=== PATIENT | female | born 1940 | race Two or more races ===

== ENCOUNTER 2024-06-03 12:31 | Emergency (ER) | payer MEDICARE, MEDICAID, SELFPAY ==
[2024-06-03 12:34] VITALS: BMI 26.6
[2024-06-03 12:50] VITALS: BP 149/89; PULSE 72; RESP 18; TEMP 36.8; O2SAT 100
--- NOTE | 2024-06-03 12:53 | XR_ITS ---
Examination: AP lateral chest 2 views TECHNIQUE: Upright AP lateral chest 2 views Exam date and time: June 03, 2024 1347 hours Comparison December 29, 2023 INDICATIONS: Sternal chest pain beginning this morning FINDINGS: Mild prominence left ventricle Mild ectasia thoracic aorta. No pneumonia or pulmonary edema Moderate thoracic spondylosis IMPRESSION: No pneumonia or pulmonary edema
--- NOTE | 2024-06-03 12:53 | EKG_ITS ---
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
--- NOTE | 2024-06-03 12:53 | PD.EDRME ---
Rapid Medical Screening Exam E Arrival date/time: 06/03/24 12:31 84-year-old female with a history of hypertension, hyperlipidemia presents to the emergency room with a chief complaint of 8 out of 10 sternal chest pain that began this morning but has now subsided. Patient also states she is having numbness to her lower extremities and left arm. Patient has a history of heart attacks. I have greeted and performed a focused initial assessment of this patient. A comprehensive ED assessment and evaluation of the patient, analysis of all test results, and completion of the medical decision making process will be conducted by additional ED providers. Chief Complaint: Weakness Time Seen by Provider: 06/03/24 12:36 Vital signs: Vital Signs Temperature 98.2 F 06/03/24 12:50 Pulse Rate 72 06/03/24 12:50 Respiratory Rate 18 06/03/24 12:50 Blood Pressure 149/89 H 06/03/24 12:50 Pulse Oximetry (%) 100 06/03/24 12:50 Oxygen Delivery Method Room Air 06/03/24 12:50 Vital signs reviewed by provider: Yes
[2024-06-03 13:21] LABS: Basophils # (Auto) 0.1 Thou/mm3 (0.0-0.2); Basophils % (Auto) 1 % (0-2.5); Eosinophils # (Auto) 0.3 Thou/mm3 (0.0-0.5); Eosinophils % (Auto) 4 % (0-10); Hematocrit 33.9 % (36.0-46.0); Hemoglobin 11.4 g/dL (12.0-16.0); Immature Granulocytes % (Auto) 0 % (0-0); Immature Granulocytes Auto 0.02 Thou/mm3 (0.00-0.00); Lymphocytes # (Auto) 2.4 Thou/mm3 (1.0-4.8); Lymphocytes % (Auto) 33 % (10-50); Mean Corpuscular HGB Conc 33.6 g/dl (31.0-37.0); Mean Corpuscular Hemoglobin 29.8 pg (25.0-35.0); Mean Corpuscular Volume 89 fL (80-100); Monocytes # (Auto) 0.6 Thou/mm3 (0.0-0.8); Monocytes % (Auto) 8 % (0-12); Neutrophils # (Auto) 4.1 Thou/mm3 (1.8-7.7); Neutrophils % (Auto) 55 % (37-80); Nucleated Red Blood Cell % 0 /100 WBC (0); Platelet Count 225 Thou/mm3 (140-440); RDW Standard Deviation 44.2 fL (36.4-46.3); Red Blood Count 3.83 Miln/mm3 (4.00-5.20); White Blood Count 7.5 Thou/mm3 (3.6-11.0)
[2024-06-03 13:36] LABS: Partial Thromboplastin Time 23.2 Seconds (22.0-36.0); Prothrombin Time 10.9 Seconds (9.0-12.2)
[2024-06-03 13:41] LABS: B-Type Natriuretic Peptide 112 pg/mL (0-100)
[2024-06-03 13:43] LABS: Alanine Aminotransferase 13 U/L (10-49); Albumin/Globulin Ratio 1.5 (1.2-2.2); Alkaline Phosphatase 60 U/L (46-116); Anion Gap 7 (7-16); Aspartate Amino Transferase 21 U/L (0-34); BUN/Creatinine Ratio 23 Ratio (12-20); Bilirubin,Total 0.6 mg/dL (0.3-1.2); Blood Urea Nitrogen 18 mg/dL (9-23); Calcium 8.5 mg/dL (8.3-10.6); Calcium (Corrected) 8.5 mg/dL (8.5-10.1); Carbon Dioxide 27.9 mMol/L (20.0-31.0); Chloride 103 mMol/L (98-107); Creatinine (Component) 0.8 mg/dL (0.6-1.3); Estimated Creatinine Clearance 50.4 mL/min (>60); Globulin 2.7 gm/dL (2.3-3.5); Glucose 136 mg/dL (74-106); Magnesium 2.1 mg/dL (1.6-2.6); Osmolality,Calculated 279 (275-295); Potassium 3.8 mMol/L (3.4-5.1); Sodium 138 mMol/L (136-145); Total Protein 6.7 gm/dL (5.7-8.2); Troponin I < 0.002 ng/mL (0.0-0.045); eGFR > 60 See Note
[2024-06-03 15:23] LABS: Collection Type, Urine Clean Catch
[2024-06-03 15:32] LABS: Bilirubin,Urine Negative (Negative); Blood,Urine Negative (Negative); Clarity,Urine Clear (Clear/Hazy); Color,Urine Lt-Yellow (Lt Yel-Yel); Glucose, Urine Negative (Negative); Ketones,Urine Negative (Negative); Leukocyte Esterase,Urine Negative (Negative); Nitrite,Urine Negative (Negative); Protein,Urine Negative (Neg - Trace); RBC,Urine 1 /hpf (0-3); Specific Gravity,Urine 1.012 (1.001-1.035); Squamous Epithelial Cell,Urine 1 /hpf (0-5); Urobilinogen,Urine Negative mg/dL (0.0-1.0); WBC,Urine 1 /hpf (0-5)
--- NOTE | 2024-06-03 16:49 | PD.EDRME ---
Rapid Medical Screening Exam RME Arrival date/time: 06/03/24 12:31 06/03/24 12:31 84-year-old female with a history of hypertension, hyperlipidemia presents to the emergency room with a chief complaint of 8 out of 10 sternal chest pain that began this morning but has now subsided. Patient also states she is having numbness to her lower extremities and left arm. Patient has a history of heart attacks. I have greeted and performed a focused initial assessment of this patient. A comprehensive ED assessment and evaluation of the patient, analysis of all test results, and completion of the medical decision making process will be conducted by additional ED providers. Chief Complaint: Weakness Time Seen by Provider: 06/03/24 12:36 Vital signs: Vital Signs Temperature 98.2 F 06/03/24 12:50 Pulse Rate 72 06/03/24 12:50 Respiratory Rate 18 06/03/24 12:50 Blood Pressure 149/89 H 06/03/24 12:50 Pulse Oximetry (%) 100 06/03/24 12:50 Oxygen Delivery Method Room Air 06/03/24 12:50 RME Narrative: 06/03/24 12:31 84-year-old female with a history of hypertension, hyperlipidemia presents to the emergency room with a chief complaint of 8 out of 10 sternal chest pain that began this morning but has now subsided. Patient also states she is having numbness to her lower extremities and left arm. Patient has a history of heart attacks. I have greeted and performed a focused initial assessment of this patient. A comprehensive ED assessment and evaluation of the patient, analysis of all test results, and completion of the medical decision making process will be conducted by additional ED providers.
--- NOTE | 2024-06-03 16:53 | PD.EDADULT ---
ED General RME/HPI General Chief complaint: Weakness Stated complaint: Feels body is numb Time Seen by Provider: 06/03/24 12:36 Arrival date/time: 06/03/24 12:31 CC: The chest pain at the start of the left anterior chest radiated across the right chest and up into the back lasted approximately 20 minutes no prior history of similar events with spontaneously resolved after 20 minutes. Patient denies shortness of breath difficulty breathing headache nausea vomiting or diarrhea no other complaints at this time. RME / HPI RME / HPI narrative: 06/03/24 12:31 84-year-old female with a history of hypertension, hyperlipidemia presents to the emergency room with a chief complaint of 8 out of 10 sternal chest pain that began this morning but has now subsided. Patient also states she is having numbness to her lower extremities and left arm. Patient has a history of heart attacks. I have greeted and performed a focused initial assessment of this patient. A comprehensive ED assessment and evaluation of the patient, analysis of all test results, and completion of the medical decision making process will be conducted by additional ED providers. Related Data Home Medications ?Medication ?Instructions ?Recorded ?Confirmed ezetimibe 10 mg tablet 10 mg PO QDAY 04/23/17 04/23/17 losartan 100 1 tab PO QDAY 04/23/17 04/23/17 mg-hydrochlorothiazide 12.5 mg tablet omeprazole 20 mg capsule,delayed 20 mg PO QDAY 04/23/17 04/23/17 release Previous Rx's ?Medication ?Instructions ?Recorded omeprazole 20 mg tablet,delayed 20 mg PO QDAY #30 tabs 05/25/22 release omeprazole 20 mg capsule,delayed 20 mg PO QDAY #14 caps 12/29/23 release Allergies Allergy/AdvReac Type Severity Reaction Status Date / Time codeine Allergy Swelling Verified 12/29/23 04:58 of Lip/Tongue/Throat Review of Systems Review of Systems Narrative Review of Systems: GEN: No fever, no chills, no weight loss EYES: No discharge, no visual changes, no pain HEENT: No ear pain, no congestion, no sore throat PULM: No shortness of breath, no cough, no congestion CV: + chest pain, no dyspnea on exertion, no palpitations GI: No nausea, no vomiting, no diarrhea, no pain, no constipation : No frequency, no urgency, no dysuria MUSC/SKEL: No joint pain, no back pain SKIN: No rash PSYCH: No hallucinations, no depression HEME/LYMPH: No easy bleeding or bruising tendencies NEURO: No weakness, no headache Past Medical History Past Medical History NEUROLOGIC: Positive Neurological Disorders; Negative Migraine CARDIAC: Positive Cardiac Disorders, Hypercholesterolemia and Hypertension; Negative Congestive Heart Failure RESPIRATORY: Negative Chronic Obstructive Pulmonary Disease (COPD) or Asthma GASTROINTESTINAL: Positive Gastrointestinal Disorders, Hiatal Hernia and Gastroesophageal Reflux Disease GENITOURINARY: Negative Genitourinary Disorders or Renal Disease REPRODUCTIVE: Negative Pelvic Inflammatory Disease MUSCULOSKELETAL: Positive Musculoskeletal Disorders ENT: Positive Cataracts (bilateral removed) ENDOCRINE: Negative Endocrine Disorders, Diabetes Mellitus Type 1 or Diabetes Mellitus Type 2 HEMATOLOGIC: Negative Blood Disorders or Sickle Cell Disease PSYCHO/SOCIAL: Positive Depression OTHER HISTORY: Positive Hospitalization (flu) and Measles; Negative Blood Transfusions or Anesthesia Reactions Family History FAMILY HISTORY: Positive Family Cancer (brother) Surgical History SURGICAL: Positive Hysterectomy Social History SMOKING STATUS: Never smoker ED Exam Narrative Physical exam: [General: Deconditioned but not in any no acute distress Head normocephalic HEENT: Within acceptable limits Neck is supple nontender Chest equal chest rise nontender to palpation Respiratory: Clear to auscultation no wheezes crackles or rubs CV: Rate rhythm is regular no murmurs rubs or clicks Abdomen is distended secondary to body habitus soft nontender no masses positive bowel sounds all 4 quadrants Back: Chief Atik, no CVA tenderness no spinous process tenderness from cervical spine thoracic and lumbar spine Skin: Intact no petechiae rash induration ulceration or crepitus Extremities: Moving all extremity against resistance cap refill less than 2 seconds neurosensory intact Neuro: Awake alert oriented x3 Glascow coma 15 no focal deficits] Course Quality Measures none Orders Category Date Time Status Bedside COVID-19 Antigen Test NOW Care 06/03/24 12:53 Active Bedside Influenza A&B Antigen Test NOW Care 06/03/24 12:53 Completed EKG (ED ONLY) *Do not use* NOW Care 06/03/24 12:53 Completed EKG (ED Only) Stat Exams 06/03/24 12:53 Draft XR chest 2V Stat Exams 06/03/24 12:53 Completed B-Type Natriuretic Peptide Stat Lab 06/03/24 13:00 Completed CBC Stat Lab 06/03/24 13:00 Completed Comprehensive Metabolic Panel Stat Lab 06/03/24 13:00 Completed Magnesium Stat Lab 06/03/24 13:00 Completed Partial Thromboplastin Time Stat Lab 06/03/24 13:00 Completed Prothrombin Time with INR Stat Lab 06/03/24 13:00 Completed Troponin I Stat Lab 06/03/24 13:00 Completed Urinalysis Stat Lab 06/03/24 15:15 Completed Vital Signs Vital signs: Vital Signs Temperature 98.2 F 06/03/24 12:50 Pulse Rate 72 06/03/24 12:50 Respiratory Rate 18 06/03/24 12:50 Blood Pressure 149/89 H 06/03/24 12:50 Pulse Oximetry (%) 100 06/03/24 12:50 Oxygen Delivery Method Room Air 06/03/24 12:50 [facility] Patient data External records reviewed:: [facility] previous records Clinical information provided by:: none Social determinants that could affect healthcare access:: none Patient has the following chronic illnesses:: Coronary artery disease How is presenting disease/condition affected by chronic disease/condition?: uneffected by Evaluation data The following diagnostics were reviewed and interpreted by me:: lab results, radiology exam(s) and EKG tracing(s) Lab and/or radiology exams considered but not ordered:: EKG performed at 1306 shows ventricular rate of 73 TX interval 156 QRS of 8 1 QTc of 405 is normal sinus rhythm. CBC shows no acute leukocytosis and H&H of 11.4 and 33.9 platelets within acceptable limits Coags within acceptable limits CMP shows no significant electrolyte imbalances glucose of 136 no transaminitis or T. bili elevation Troponin is negative BNP is 112 urine Urine is negative for urinary tract infection chest x-ray as interpreted by me read by radiology as negative for any acute finding requires emergent or immediate intervention. Interpretation Summary: Chest pain of indeterminate cause. Patient has remained chest pain-free for the last 4 hours. Will discharge home to follow-up with her primary care provider Medications Medications considered but not ordered:: None Medication administrations:: None Consultations Consultation(s) initiated? (list below): No Diagnosis Differential Diagnosis ED Complaint MDM: ACS ID pneumonia Most likely diagnosis given after review of the tests above:: Chest pain Admission Indicated Admission indicated?: not indicated Explain why admission is indicated or not indicated:: Stable for outpatient follow Admission Request Was there a request for admission?: No Disposition Plan Disposition Plan: Discharge Discharge Attestation Discharge Attestation: The patient and all family members were given an opportunity to ask questions and understood the discharge instructions. Discharge instructions specifically effects, indications for sooner follow up or return to the emergency department, and the expected course of current diagnosis. Patient condition: Stable Medical Decision Making Differential Diagnosis Differential Diagnosis: ACS ID pneumonia Lab Data 06/03/24 13:00 06/03/24 13:00 Labs: Lab Results 06/03/24 06/03/24 Range/Units 13:00 15:15 WBC 7.5 (3.6-11.0) Thou/mm3 RBC 3.83 L (4.00-5.20) Miln/mm3 Hgb 11.4 L (12.0-16.0) g/dL Hct 33.9 L (36.0-46.0) % MCV 89 (80-100) fL MCH 29.8 (25.0-35.0) pg MCHC 33.6 (31.0-37.0) g/dl RDW Std Deviation 44.2 (36.4-46.3) fL Plt Count 225 (140-440) Thou/mm3 Neut % (Auto) 55 (37-80) % Lymph % (Auto) 33 (10-50) % Dunn % (Auto) 8 (0-12) % Eos % (Auto) 4 (0-10) % Baso % (Auto) 1 (0-2.5) % Neut # (Auto) 4.1 (1.8-7.7) Thou/mm3 Lymph # (Auto) 2.4 (1.0-4.8) Thou/mm3 Dunn # (Auto) 0.6 (0.0-0.8) Thou/mm3 Eos # (Auto) 0.3 (0.0-0.5) Thou/mm3 Baso # (Auto) 0.1 (0.0-0.2) Thou/mm3 Immature Gran # (Auto) 0.02 H (0.00-0.00) Thou/mm3 Absolute Nucleated RBC 0.00 (0.00-0.00) Thou/mm3 Immature Gran % 0 (0-0) % Nucleated RBC % 0 (0) /100 WBC PT 10.9 (9.0-12.2) Seconds INR 1.0 (0.9-1.3) APTT 23.2 (22.0-36.0) Seconds Sodium 138 (136-145) mMol/L Potassium 3.8 (3.4-5.1) mMol/L Chloride 103 (98-107) mMol/L Carbon Dioxide 27.9 (20.0-31.0) mMol/L Anion Gap 7 (7-16) BUN 18 (9-23) mg/dL Creatinine 0.8 (0.6-1.3) mg/dL Estim Creat Clear Calc 50.4 L (>60) mL/min eGFR > 60 (60 - ) See Note BUN/Creatinine Ratio 23 H (12-20) Ratio Glucose 136 H (74-106) mg/dL Calculated Osmolality 279 (275-295) Calcium 8.5 (8.3-10.6) mg/dL Corrected Calcium 8.5 (8.5-10.1) mg/dL Magnesium 2.1 (1.6-2.6) mg/dL Total Bilirubin 0.6 (0.3-1.2) mg/dL AST 21 (0-34) U/L ALT 13 (10-49) U/L Alkaline Phosphatase 60 (46-116) U/L Troponin I < 0.002 (0.0-0.045) ng/mL B-Natriuretic Peptide 112 H (0-100) pg/mL Total Protein 6.7 (5.7-8.2) gm/dL Albumin 4.0 (3.4-4.8) gm/dL Globulin 2.7 (2.3-3.5) gm/dL Albumin/Globulin Ratio 1.5 (1.2-2.2) Ur Collection Type Clean Catch Urine Color Lt-Yellow (Lt Yel-Yel) Urine Clarity Clear (Clear/Hazy) Urine pH 7.0 (5.0-7.0) Ur Specific Watkins 1.012 (1.001-1.035) Urine Protein Negative (Neg - Trace) Urine Glucose (UA) Negative (Negative) Urine Ketones Negative (Negative) Urine Blood Negative (Negative) Urine Nitrite Negative (Negative) Urine Bilirubin Negative (Negative) Urine Urobilinogen (Auto) Negative (0.0-1.0) mg/dL Ur Leukocyte Esterase Negative (Negative) Urine RBC 1 (0-3) /hpf Urine WBC 1 (0-5) /hpf Ur Squamous Epith Cells 1 (0-5) /hpf Urine Bacteria None (None) Discharge Plan Plan Patient Disposition: HOME (Self Care) Patient condition on transfer: Stable Prescriptions/Referrals Prescriptions/Med Rec: No Action omeprazole 20 mg Capsule,Delayed Release(Dr/Ec) 20 mg PO QDAY ezetimibe 10 mg Tablet 10 mg PO QDAY losartan-hydrochlorothiazide 100-12.5 mg Tablet 1 tab PO QDAY omeprazole 20 mg tablet,delayed release (DR/EC) 20 mg PO QDAY Qty: 30 0RF omeprazole 20 mg capsule,delayed release(DR/EC) 20 mg PO QDAY Qty: 14 0RF Referrals: Jono Marie [Primary Care Provider] - In 1 week Problem List Clinical Impression: Chest pain Patient/Caregiver Discharge Instructions Education Materials: ED Chest Pain, Uncertain Cause Additional Instructions: Return to the emergency if the chest pain reoccurs, if it severe call 911. Print Language: Vietnamese Stand Alone Forms: Anjelica Award Info., Patient Portal Info Letter PA/FORESTRY SUPPORT SPECIALIST Supervising Physician PA/FORESTRY SUPPORT SPECIALIST Supervising Physician: Braov Mcdowell ENP
== END 2024-06-03 17:04 | disposition home or self-care (01) ==
PROVIDERS: Nurse Practitioner Family; Emergency Provider Emergency Medicine; PCP Physician Assistant
DX: R07.9 Chest pain, unspecified (principal); I10 Essential (primary) hypertension; E78.5 Hyperlipidemia, unspecified; I25.2 Old myocardial infarction
CPT/HCPCS: 36415; 71046; 80053; 81001; 83735; 83880; 84484; 85025; 85610; 85730; 87400; 87811; 93005; 99283

== ENCOUNTER 2025-01-21 17:51 | Inpatient (IN) | payer MEDICARE, MEDICAID, SELFPAY ==
[2025-01-21 17:52] VITALS: PULSE 94; RESP 18; O2SAT 98; BMI 24.2
[2025-01-21 17:55] VITALS: BP 140/87; PULSE 84; RESP 19; TEMP 37.1; O2SAT 99
--- NOTE | 2025-01-21 18:48 | XR_ITS ---
Examination: CT abdomen with intravenous contrast CT pelvis with intravenous contrast 2-D coronal reconstructions 2-D sagittal reconstructions Date and time of exam: January 21, 2025, 2101 hours COMPARISON: 11/12/2010 INDICATIONS: Onset generalized abdominal pain and weakness today. CTDI: vol (mGy) 15.92 DLP: (mGycm) 661 Technique: Multiple axial sections of the abdomen and pelvis have been obtained. 64 slice high-resolution scanner used. 3 mm axial sections have been obtained, post intravenous injection 60 cc Isovue 370 2-D sagittal, coronal reconstructions obtained. Low dose protocols were performed. One or more of the following dose reduction techniques were used; automated exposure control, adjustment of the mA and/or KV according to patient size, use of iterative reconstruction technique. Findings: Large retrocardiac gastric hernia, no visualized liver or splenic lesions Absent gallbladder No pancreatic or adrenal mass No renal or ureteral calculi Aorta normal size No bowel obstruction Normal appendix No diverticulitis No pelvic mass Bladder intact Severe osteopenia, moderate narrowing hip joint IMPRESSION: No renal or ureteral calculi, no hydronephrosis Normal appendix No bowel obstruction diverticulitis or free air
--- NOTE | 2025-01-21 18:48 | EKG_ITS ---
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
--- NOTE | 2025-01-21 18:52 | XR_ITS ---
EXAMINATION: AP chest single view TECHNIQUE: AP portable semiupright chest single view Date and time: January 21, 2025, 1907 hours INDICATIONS: Shortness of breath vomiting today. FINDINGS: Normal heart size Ectatic thoracic aorta The right mediastinum appears prominent on this study Prominent osteopenia IMPRESSION: Recommend PA lateral chest follow-up to exclude prominent right mediastinum
--- NOTE | 2025-01-21 18:53 | PD.EDWEAK ---
ED Weakness RME/HPI General Chief complaint: Weakness Stated complaint: WEAKNESS Time Seen by Provider: 01/21/25 18:16 Arrival date/time: 01/21/25 17:51 84-year-old female patient with significant history of hypercholesterolemia, hypertension, not taking any blood thinner, came in for evaluation regarding generalized body weakness. Patient complaining of generalized body weakness since earlier today, associated with coffee-ground vomitus this afternoon. On my initial evaluation patient is actively having coffee-ground vomitus. Patient denies any abdominal pain denies any diarrhea denies any cough denies any fever denies any other complaints. Denies any abdominal surgery. Related Data Home Medications ?Medication ?Instructions ?Recorded ?Confirmed ezetimibe 10 mg tablet 10 mg PO QDAY 04/23/17 04/23/17 losartan 100 1 tab PO QDAY 04/23/17 04/23/17 mg-hydrochlorothiazide 12.5 mg tablet omeprazole 20 mg capsule,delayed 20 mg PO QDAY 04/23/17 04/23/17 release Previous Rx's ?Medication ?Instructions ?Recorded omeprazole 20 mg tablet,delayed 20 mg PO QDAY #30 tabs 05/25/22 release omeprazole 20 mg capsule,delayed 20 mg PO QDAY #14 caps 12/29/23 release Allergies Allergy/AdvReac Type Severity Reaction Status Date / Time codeine Allergy Swelling Verified 12/29/23 04:58 of Lip/Tongue/Throat Review of Systems Review of Systems Narrative Review of Systems: Review of system reviewed and within normal limits except mentioned in HPI ED Exam Narrative Physical exam: VITAL SIGNS: Reviewed. GENERAL APPEARANCE: Alert and interactive, follows commands, no acute distress, HEAD AND FACE: Non-traumatic. ENT: PERRL, pink conjunctivitis, eyelid no trauma, Mucous membrane moist. NECK: Supple, nontender, no nuchal rigidity. CHEST: No tenderness, no crepitus, no paradoxical movement, no retractions. LUNGS: Clear, well ventilated, symmetric, no rales, no wheezing, no ronchi, no stridor, good breath sounds bilaterally. HEART: Regular rate, regular rhythm, no murmur, no gallops. ABDOMEN: Soft, positive bowel sounds, nondistended, no guarding, nontender, no rebound, no masses, RECTAL: Deferred. GENITAL: Deferred. NEUROLOGICAL: Gross motor function intact sensory function intact, Appropriate for age. MUSCULOSKELETAL: low back nontender, full range of motion. EXTREMITIES: Nontender, full range of motion. SKIN: Color pink, dry, no rash, no lacerations, no abrasions, no contusions. LYMPHATICS: Deferred. Course Quality Measures none Orders Category Date Time Status COVID-19 Screening Questionnaire NOW Care 01/21/25 22:[address] Screening NOW Care 01/21/25 18:48 Active Decision to Admit X1 Care 01/21/25 22:11 Active EKG (ED ONLY) *Do not use* NOW Care 01/21/25 18:48 Completed NPO after Midnight ONCE Care 01/21/25 22:11 Active Occult blood,Gastric (Nursing) NEEDED Care 01/21/25 18:49 Active Consult to Gastroenterology Stat Cons 01/21/25 22:04 Ordered Diet NPO after Midnight Diet 01/22/25 00:[address] abdomen pelvis w con Stat Exams 01/21/25 18:48 Completed EKG (ED Only) Stat Exams 01/21/25 18:48 Draft XR chest 1V Stat Exams 01/21/25 18:52 Completed CBC Stat Lab 01/21/25 19:00 Completed Comprehensive Metabolic Panel Stat Lab 01/21/25 19:00 Completed Lipase Stat Lab 01/21/25 19:00 Completed Partial Thromboplastin Time Stat Lab 01/21/25 19:00 Completed Prothrombin Time with INR Stat Lab 01/21/25 19:00 Completed Troponin I Stat Lab 01/21/25 19:00 Completed Urinalysis Stat Lab 01/21/25 20:53 Completed Ondansetron Inj [Zofran Inj] Med 01/21/25 18:48 Discontinued 4 mg IVP X1 ONE POTASSIUM CHL 10 mEq IVPB [Kcl Ivpb] Med 01/21/25 20:28 Discontinued 10 meq in 100 ml IV X1 Pantoprazole Inj [Protonix Inj] Med 01/21/25 18:48 Discontinued 80 mg IVP X1 ONE Potassium Chloride [K-Dur] Med 01/21/25 21:52 Discontinued 20 meq PO X1 ONE Vital Signs Vital signs: Vital Signs Temperature 98.7 F 01/21/25 17:55 Pulse Rate 84 01/21/25 17:55 Respiratory Rate 19 01/21/25 17:55 Blood Pressure 140/87 H 01/21/25 17:55 Pulse Oximetry (%) 99 11/22/25 17:55 Oxygen Delivery Method Room Air 01/21/25 17:55 Weakness MDM Narrative MDM Narrative:: 84-year-old female patient with significant history of hypercholesterolemia, hypertension, not taking any blood thinner, came in for evaluation regarding generalized body weakness. Patient complaining of generalized body weakness since earlier today, associated with coffee-ground vomitus this afternoon. On my initial evaluation patient is actively having coffee-ground vomitus. Patient denies any abdominal pain denies any diarrhea denies any cough denies any fever denies any other complaints. Denies any abdominal surgery. Patient tested positive for gastric occult blood strong positive. From the vomitus Was given IV Zofran and IV Protonix Patient's laboratory workup all came back unremarkable including normal hemoglobin and hematocrit. Except for potassium of 3.[address] scan of the abdomen pelvis came back unremarkable. Chest x-ray also came back unremarkable. EKG showed normal sinus rhythm, ventricular rate of 87 bpm, no ST segment elevation or depression noted. Urinalysis positive for leukocyte esterase and WBC however there is also a lot of squamous cell telling me that this sample is contaminated. Plan of care discussed with the patient and family who agrees to be admitted for further management. I consulted Dr. Tan, GI specialist on-call, who told me to put the patient on n.p.o. for scope in the morning. Patient and family agrees to be scope in the morning. Spoke with hospitalist, who admitted the patient. Patient data External records reviewed:: None Clinical information provided by:: patient Social determinants that could affect healthcare access:: none Patient has the following chronic illnesses:: Hypertension How is presenting disease/condition affected by chronic disease/condition?: uneffected by Evaluation data The following diagnostics were reviewed and interpreted by me:: lab results, radiology exam(s) and EKG tracing(s) Lab and/or radiology exams considered but not ordered:: None Interpretation Summary: See above Medications / Prescriptions Medications or Prescriptions considered but not ordered:: None Medication administrations:: Medication Administration History Discontinued Medications Potassium Chloride (Kcl Ivpb) 10 meq in 100 mls @ 100 mls/hr IV X1 ONE Stop: 01/21/25 21:27 Last Infusion: 01/21/25 21:49 Dose: 0 mls/hr Documented By: Infusion: 01/21/25 21:39 Dose: 50 mls/hr Documented By: Admin: 01/21/25 21:17 Dose: 100 mls/hr Documented By: BD Ondansetron HCl (Ondansetron Inj 2 Mg/Ml Inj 2 Ml) 4 mg IVP X1 ONE; Protocol Stop: 01/21/25 18:49 Last Admin: 01/21/25 19:00 Dose: 4 mg Documented By: TM Pantoprazole Sodium (Pantoprazole Inj 40 Mg Vial) 80 mg IVP X1 ONE Stop: 01/21/25 18:49 Last Admin: 01/21/25 19:01 Dose: 80 mg Documented By: TM Potassium Chloride (Potassium Chloride 20 Meq Tabcr) 20 meq PO X1 ONE Stop: 01/21/25 21:53 Last Admin: 01/21/25 21:59 Dose: 20 meq Documented By: AC See above Consultations Consultation(s) initiated? (list below): No Diagnosis Weakness Differential Diagnosis: dehydration and other (Coffee-ground vomitus, upper GI bleed, generalized weakness) Most likely diagnosis given after review of the tests above:: Upper GI bleed Admission Indicated Admission indicated?: not indicated Admission Request Was there a request for admission?: Yes Admission Attestation Admission request attestation: Discussed case with [Dr House] from Hospitalist service regarding admission. Discussed patients ED course, exam findings, labs, and radiology results. The Hospitalist [agrees] to accept the patient for admission. Disposition Plan Disposition Plan: Admit Discharge Plan Plan Patient Disposition: Admit Acute Care w/in Hospital Discharge Disposition comment: Stable Prescriptions/Referrals Prescriptions/Med Rec: No Action omeprazole 20 mg Capsule,Delayed Release(Dr/Ec) 20 mg PO QDAY ezetimibe 10 mg Tablet 10 mg PO QDAY losartan-hydrochlorothiazide 100-12.5 mg Tablet 1 tab PO QDAY omeprazole 20 mg tablet,delayed release (DR/EC) 20 mg PO QDAY Qty: 30 0RF omeprazole 20 mg capsule,delayed release(DR/EC) 20 mg PO QDAY Qty: 14 0RF Referrals: Jono Marie [Primary Care Provider] - In 1 week Problem List Clinical Impression: Acute upper gastrointestinal bleeding Patient/Caregiver Discharge Instructions Print Language: Congolese Stand Alone Forms: [employer] Award Info., Patient Portal Info Letter
[2025-01-21] MEDS: ONDANSETRON INJ 2 MG/ML INJ 2 ML 4 MG IVP (19:00)
[2025-01-21 20:07] LABS: INR 1.0 (0.9-1.3); Partial Thromboplastin Time 25.2 Seconds (22.0-36.0); Prothrombin Time 10.4 Seconds (9.0-12.2)
[2025-01-21 20:13] LABS: Alanine Aminotransferase 17 U/L (10-49); Albumin, Serum 4.5 gm/dL (3.4-4.8); Albumin/Globulin Ratio 1.7 (1.2-2.2); Alkaline Phosphatase 70 U/L (46-116); Anion Gap 12 (7-16); Aspartate Amino Transferase 22 U/L (0-34); BUN/Creatinine Ratio 24 Ratio (12-20); Bilirubin,Total 0.5 mg/dL (0.3-1.2); Blood Urea Nitrogen 19 mg/dL (9-23); Calcium 10.1 mg/dL (8.3-10.6); Calcium (Corrected) 10.1 mg/dL (8.5-10.1); Carbon Dioxide 28.0 mMol/L (20.0-31.0); Chloride 103 mMol/L (98-107); Creatinine (Component) 0.8 mg/dL (0.6-1.3); Estimated Creatinine Clearance 47.3 mL/min (>60); Globulin 2.6 gm/dL (2.3-3.5); Glucose 80 mg/dL (74-106); Lipase 59 U/L (12-53); Osmolality,Calculated 286 (275-295); Potassium 3.2 mMol/L (3.4-5.1); Sodium 143 mMol/L (136-145); Total Protein 7.1 gm/dL (5.7-8.2); Troponin I < 0.020 ng/mL (0.0-0.045); eGFR > 60 See Note
[2025-01-21 20:14] LABS: Basophils # (Auto) 0.1 Thou/mm3 (0.0-0.2); Basophils % (Auto) 1 % (0-2.5); Eosinophils # (Auto) 0.2 Thou/mm3 (0.0-0.5); Eosinophils % (Auto) 2 % (0-10); Hematocrit 37.0 % (36.0-46.0); Hemoglobin 12.4 g/dL (12.0-16.0); Immature Granulocytes Auto 0.02 Thou/mm3 (0.00-0.00); Lymphocytes # (Auto) 2.4 Thou/mm3 (1.0-4.8); Lymphocytes % (Auto) 27 % (10-50); Mean Corpuscular HGB Conc 33.5 g/dl (31.0-37.0); Mean Corpuscular Hemoglobin 30.0 pg (25.0-35.0); Mean Corpuscular Volume 90 fL (80-100); Monocytes # (Auto) 0.9 Thou/mm3 (0.0-0.8); Monocytes % (Auto) 10 % (0-12); Neutrophils # (Auto) 5.4 Thou/mm3 (1.8-7.7); Neutrophils % (Auto) 60 % (37-80); Nucleated Red Blood Cell # 0.00 Thou/mm3 (0.00-0.00); Nucleated Red Blood Cell % 0 /100 WBC (0); Platelet Count 215 Thou/mm3 (140-440); RDW Standard Deviation 42.5 fL (36.4-46.3); Red Blood Count 4.13 Miln/mm3 (4.00-5.20); White Blood Count 9.0 Thou/mm3 (3.6-11.0)
[2025-01-21 21:15] LABS: Collection Type, Urine Clean Catch
[2025-01-21] MEDS: POTASSIUM CHL 10 mEq IVPB 10 MEQ/100 ML BAG 100 MEQ IV (21:17)
[2025-01-21 21:19] VITALS: BP 161/84; PULSE 76; RESP 20; TEMP 36.7; O2SAT 100
[2025-01-21 21:29] LABS: Bacteria,Urine Rare; Bilirubin,Urine Negative (Negative); Blood,Urine Negative (Negative); Clarity,Urine Clear (Clear/Hazy); Color,Urine Lt-Yellow (Lt Yel-Yel); Glucose, Urine 1+ (Negative); Ketones,Urine Negative (Negative); Leukocyte Esterase,Urine Positive (Negative); Nitrite,Urine Negative (Negative); PH,Urine 6.5 (5.0-7.0); Protein,Urine Negative (Neg - Trace); RBC,Urine 2 /hpf (0-3); Specific Gravity,Urine 1.012 (1.001-1.035); Squamous Epithelial Cell,Urine 7 /hpf (0-5); Urobilinogen,Urine Negative mg/dL (0.0-1.0); WBC,Urine 16 /hpf (0-5)
--- NOTE | 2025-01-21 23:03 | PD.RESHP ---
Documentation for date of: 01/21/25 [facility] History of Present Illness History of present illness: 84-year-old female with a history of GERD, stomach ulcer, vertigo (off meclizine), hypercholesterolemia, hypertension, and a prior TIA (on aspirin), presents with generalized body weakness that began earlier today, along with three episodes of coffee-ground vomitus (approximately 1/4 cup) prior to arrival. She denies any blood in her stools or elsewhere. The patient occasionally takes Aleve or ibuprofen for vertigo symptoms, though she has not had vertigo in some time. She has also been feeling weak and stiff for the past two months. The patient follows up with Dr. 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 On initial evaluation, she is actively vomiting coffee-ground material. She denies abdominal pain, diarrhea, cough, fever, or any other complaints, and has no history of abdominal surgery. ED course: Initial vitals include T 98.7, BP 140/87, HR 84, RR 19, O2 sat 99% room air. CBC showed hemoglobin 12.4, platelets 250. CMP showed potassium 3.2, creatinine 0.8, magnesium 2.1, LFTs within normal range, lipase mildly elevated at 59. Chest x-ray showed prominent right mediastinum, ectatic thoracic aorta, prominent osteopenia. UA showed WBC 16, positive leuk esterase. In ED patient received Protonix 80 mg x 1, and potassium chloride 30 mEq. Past medical history: As stated above. Allergies: Codeine (angioedema) Family history: Noncontributory. Social history: No alcohol use, no smoking, no illicit drug use. Patient admitted for workup of upper GI bleed. Review of Systems Review of Systems Narrative Review of Systems: All systems reviewed negative unless stated otherwise above. Exam Vital Signs Temp Pulse Resp BP Pulse Ox O2 Del Method 98.1 F 76 20 161/84 H 100 Room Air 01/21/25 21:19 01/21/25 21:19 01/21/25 21:19 01/21/25 21:19 01/21/25 21:19 01/21/25 21:19 Narrative Exam General: AOx3, no acute distress, able to speak full sentences, Divehi-speaking HEENT: NC/AT, mucous membranes moist, bilateral sclera anicteric Cardiovascular: regular rate and rhythm, S1/S2 present, no murmurs appreciated Pulmonary: clear to auscultation bilaterally, no rales/rhonchi/wheezes Abdominal: soft, non-tender, non-distended, no rebound/guarding, normal bowel sounds present Musculoskeletal: normal ROM, no peripheral edema Skin: warm and dry, intact, no rashes, Neuro: CN II-XII intact, no focal deficits Results: Labs 01/22/25 04:42 01/22/25 04:42 Labs: Short CBC 01/21/25 Range/Units 19:00 WBC 9.0 (3.6-11.0) Thou/mm3 Hgb 12.4 (12.0-16.0) g/dL Hct 37.0 (36.0-46.0) % Plt Count 215 (140-440) Thou/mm3 BMP 01/21/25 19:00 Sodium 143 Potassium 3.2 L Chloride 103 Carbon Dioxide 28.0 BUN 19 Creatinine 0.8 Glucose 80 Calcium 10.1 Cardiac Enzymes 01/21/25 Range/Units 19:00 Troponin I < 0.020 (0.0-0.045) ng/mL Liver Function 01/21/25 Range/Units 19:00 Total Bilirubin 0.5 (0.3-1.2) mg/dL AST 22 (0-34) U/L ALT 17 (10-49) U/L Alkaline Phosphatase 70 (46-116) U/L Albumin 4.5 (3.4-4.8) gm/dL Urine 01/21/25 Range/Units 20:53 Urine Color Lt-Yellow (Lt Yel-Yel) Urine Clarity Clear (Clear/Hazy) Urine pH 6.5 (5.0-7.0) Ur Specific [place] 1.012 (1.001-1.035) Urine Protein Negative (Neg - Trace) Urine Glucose (UA) 1+ A (Negative) Quality Measures Quality Measures VTE prophylaxis Advance care planning discussed with:: patient Medications Home Medications and Allergies Home Medications ?Medication ?Instructions ?Recorded ?Confirmed ?Type losartan 100 1 tab PO QDAY 04/23/17 01/22/25 History mg-hydrochlorothiazide 12.5 mg tablet aspirin 81 mg tablet,delayed 81 mg PO QDAY 01/22/25 01/22/25 History release atorvastatin 40 mg tablet (Lipitor) 40 mg PO QDAY 01/22/25 01/22/25 History carvedilol 6.25 mg tablet (Coreg) 6.25 mg PO BID 01/22/25 01/22/25 History Allergies Allergy/AdvReac Type Severity Reaction Status Date / Time codeine Allergy Swelling Verified 12/29/23 04:58 of Lip/Tongue/Throat Visit Medications Acetaminophen (Acetaminophen 325 Mg Tablet) 650 mg PO Q6H PRN PRN Reason: PAIN (1-3) OR FEVER > 100.4 Stop: 02/20/25 22:51 Enoxaparin Sodium (Enoxaparin Sod Inj 40 Mg/0.4 Ml Syringe) 40 mg SC QDAY [facility] Stop: 02/05/25 08:59 Lactated Ringer's (Lactated Ringers) 1,000 mls @ 75 mls/hr IV .[id number] [facility] Stop: 01/22/25 12:19 Labetalol HCl (Labetalol Inj 5 Mg/Ml Vial 4 Ml) 10 mg IVP Q15MIN PRN PRN Reason: SBP >180 or DBP >100 Ondansetron HCl (Ondansetron Inj 2 Mg/Ml Inj 2 Ml) 4 mg IVP Q6H PRN; Protocol PRN Reason: NAUSEA OR VOMITING Stop: 02/20/25 22:51 Pantoprazole Sodium (Pantoprazole Inj 40 Mg Vial) 40 mg IVP BID [facility] Stop: 02/21/25 08:59 Sucralfate (Sucralfate 1 Gm Tablet) 1 gm PO X1 ONE Stop: 01/21/25 22:58 Sucralfate (Sucralfate 1 Gm Tablet) 1 gm PO TID [facility] Stop: 02/21/25 13:59 Discontinued Medications Potassium Chloride (Kcl Ivpb) 10 meq in 100 mls @ 100 mls/hr IV X1 ONE Stop: 01/21/25 21:27 Last Infusion: 01/21/25 21:49 Dose: 0 mls/hr Ondansetron HCl (Ondansetron Inj 2 Mg/Ml Inj 2 Ml) 4 mg IVP X1 ONE; Protocol Stop: 01/21/25 18:49 Last Admin: 01/21/25 19:00 Dose: 4 mg Pantoprazole Sodium (Pantoprazole Inj 40 Mg Vial) 80 mg IVP X1 ONE Stop: 01/21/25 18:49 Last Admin: 01/21/25 19:01 Dose: 80 mg Potassium Chloride (Potassium Chloride 20 Meq Tabcr) 20 meq PO X1 ONE Stop: 01/21/25 21:53 Last Admin: 01/21/25 21:59 Dose: 20 meq Assessment & Plan Plan 84-year-old female with a history of GERD, stomach ulcer, vertigo (off meclizine), hypercholesterolemia, and hypertension, TIA on aspirin, not on blood thinners, presents with generalized body weakness that began earlier today, along with three episodes of coffee-ground vomitus prior to arrival. Patient admitted for upper GI bleed workup. #Upper GI bleed workup #Hematemesis #History of gastric ulcer 3 episodes of coffee-ground emesis prior to ED along with few episodes while in ED Hemoglobin within normal range No history of liver disease No melena In ED patient received Protonix 80 mg Plan ? Sucralfate 1 g x 1, followed by 1 g 3 times daily once no longer NPO ? Protonix 40 mg IV twice daily ? N.p.o. after midnight ? GI consulted, Dr. Tan to perform EGD tomorrow #?Afib, new onset At patient's bedside, rhythm monitor showed potential A-fib EKG obtained earlier in the evening showed P waves, regular rhythm On physical exam patient appeared to have regular rate and rhythm Plan ? Obtain another EKG, confirm A-fib presence #Hypertension Patient takes Coreg and losartan Plan ? Hydralazine 10 mg IV every 4 hours as needed #Hyperlipidemia #Hypokalemia Monitor and replete as needed Takes atorvastatin 40 mg daily ?Resume home med once no longer n.p.o. Health Maintenance: Diet: N.p.o. after midnight for EGD GI prophylaxis: Protonix 40 mg IV twice daily DVT prophylaxis: Lovenox Antibiotics: None CODE STATUS: DNR Disposition: [facility] Case discussed with my attending Dr. Quintana, and senior resident, Dr. Harsh Hernandez MD PGY-1 Attending Provider Attestation/Addendum After examination of the patient and review of the clinical data I feel that this patient needs admission to the hospital for further treatment/evaluation. Plan of care discussed with patient and is in agreement. I Dalila Quintana MD, attest that I was physically present for erazo portions of evaluation, and examined patient, labs and imagings and plan of care were discussed with IM residents team, and I agree with the findings and plans documented above.
[2025-01-21 23:19] LABS: Magnesium 2.1 mg/dL (1.6-2.6)
[2025-01-22] VITALS (17 sets, daily range): BP systolic 122–176; BP diastolic 64–83; PULSE 57–74; RESP 16–21; TEMP 36.1–36.8; O2SAT 94–98; BMI 27.7
--- NOTE | 2025-01-22 | PD.IMCONS ---
HPI Data of Consult Requesting Physician: Dalila Quintana MD Primary Care Provider: Jono Brandon Consult Narrative Reason for consult: Coffee-ground hematemesis History of present illness: 84 years old female presented the hospital with weakness which was generalized weakness and coffee-ground hematemesis and she was subsequently admitted for further evaluation She has history of TIA on aspirin hyperlipidemia essential hypertension currently not taking any blood thinners she also has a history of vertigo has been on meclizine off-and-on cc:: cc: Dalila Quintana MD Review of Systems Review of Systems Systems Reviewed: All systems reviewed, normal except as documented Past Medical History Surgical History OTHER SURGICAL HX: As in the history of present illness Meds Home Medications and Allergies Home Medications ?Medication ?Instructions ?Recorded ?Confirmed ?Type losartan 100 1 tab PO QDAY 04/23/17 01/22/25 History mg-hydrochlorothiazide 12.5 mg tablet aspirin 81 mg tablet,delayed 81 mg PO QDAY 01/22/25 01/22/25 History release atorvastatin 40 mg tablet (Lipitor) 40 mg PO QDAY 01/22/25 01/22/25 History carvedilol 6.25 mg tablet (Coreg) 6.25 mg PO BID 01/22/25 01/22/25 History Allergies Allergy/AdvReac Type Severity Reaction Status Date / Time codeine Allergy Swelling Verified 12/29/23 04:58 of Lip/Tongue/Throat Exam Vital Signs Temp Pulse Resp BP Pulse Ox O2 Del Method 98.1 F 76 20 161/84 H 100 Room Air 01/21/25 21:19 01/21/25 21:19 01/21/25 21:19 01/21/25 21:19 01/21/25 21:19 01/21/25 21:19 Constitutional Comments: Alert oriented Japanese-speaking Routine Respiratory Exam Comments: Normal to auscultation Routine Abdominal Exam Comments: Soft nontender Results Labs 01/22/25 04:42 01/22/25 04:42 Labs: Short CBC 01/21/25 Range/Units 19:00 WBC 9.0 (3.6-11.0) Thou/mm3 Hgb 12.4 (12.0-16.0) g/dL Hct 37.0 (36.0-46.0) % Plt Count 215 (140-440) Thou/mm3 BMP 01/21/25 19:00 Sodium 143 Potassium 3.2 L Chloride 103 Carbon Dioxide 28.0 BUN 19 Creatinine 0.8 Glucose 80 Calcium 10.1 Cardiac Enzymes 01/21/25 Range/Units 19:00 Troponin I < 0.020 (0.0-0.045) ng/mL Liver Function 01/21/25 Range/Units 19:00 Total Bilirubin 0.5 (0.3-1.2) mg/dL AST 22 (0-34) U/L ALT 17 (10-49) U/L Alkaline Phosphatase 70 (46-116) U/L Albumin 4.5 (3.4-4.8) gm/dL Urine 01/21/25 Range/Units 20:53 Urine Color Lt-Yellow (Lt Yel-Yel) Urine Clarity Clear (Clear/Hazy) Urine pH 6.5 (5.0-7.0) Ur Specific [place] 1.012 (1.001-1.035) Urine Protein Negative (Neg - Trace) Urine Glucose (UA) 1+ A (Negative) Assessment and Plan Additional Assessment & Plan Additional Plan: # Coffee-ground emesis Plan Consent obtained for fiberoptic esophagogastroduodenoscopy with possible biopsy possible therapeutic intervention under intravenous moderate sedation IV Protonix Serial CBC Will follow the patient Other medical problems include Essential hypertension TIA Hyperlipidemia Vertigo history of Thank you very much for the opportunity to participate in the care of this patient
[2025-01-22] MEDS: SUCRALFATE 1 GM TABLET PO ×2 (00:20→21:00)
[2025-01-22] MEDS: RINGERS LACTATED 1000 ML 1,000 ML 75 ML IV (00:20)
[2025-01-22] MEDS: ACETAMINOPHEN 325 MG TABLET 650 MG PO (00:42)
--- NOTE | 2025-01-22 05:00 | EKG_ITS ---
[facility] Test Date: 2025-01-22 Pat Name: GURPREET GARVEYINOZADepartment: [facility] Cv Tech: MICHAEL : 1940 Requested By: Niels Hernandez Order Number: [id number] Reading MD: Niels Hernandez Measurements Intervals [place] Rate: 67 P: 43 AL: 165 QRS: 57 QRSD: 87 T: 43 QT: 420 QTc: 445 Interpretive Statements SINUS RHYTHM Compared to ECG 01/21/2025 19:45:02 Supraventricular rhythm no longer present Myocardial infarct finding no longer present /store/S0/[id number]
[2025-01-22 05:50] LABS: Basophils # (Auto) 0.0 Thou/mm3 (0.0-0.2); Basophils % (Auto) 0 % (0-2.5); Eosinophils # (Auto) 0.2 Thou/mm3 (0.0-0.5); Eosinophils % (Auto) 2 % (0-10); Hematocrit 33.6 % (36.0-46.0); Hemoglobin 11.3 g/dL (12.0-16.0); Immature Granulocytes Auto 0.01 Thou/mm3 (0.00-0.00); Lymphocytes # (Auto) 2.9 Thou/mm3 (1.0-4.8); Lymphocytes % (Auto) 31 % (10-50); Mean Corpuscular HGB Conc 33.6 g/dl (31.0-37.0); Mean Corpuscular Hemoglobin 30.6 pg (25.0-35.0); Mean Corpuscular Volume 91 fL (80-100); Monocytes # (Auto) 0.7 Thou/mm3 (0.0-0.8); Monocytes % (Auto) 8 % (0-12); Neutrophils # (Auto) 5.5 Thou/mm3 (1.8-7.7); Neutrophils % (Auto) 59 % (37-80); Nucleated Red Blood Cell # 0.00 Thou/mm3 (0.00-0.00); Nucleated Red Blood Cell % 0 /100 WBC (0); Platelet Count 192 Thou/mm3 (140-440); RDW Standard Deviation 42.6 fL (36.4-46.3); Red Blood Count 3.69 Miln/mm3 (4.00-5.20); White Blood Count 9.4 Thou/mm3 (3.6-11.0)
[2025-01-22 06:18] LABS: Alanine Aminotransferase 13 U/L (10-49); Albumin, Serum 3.8 gm/dL (3.4-4.8); Albumin/Globulin Ratio 1.7 (1.2-2.2); Alkaline Phosphatase 53 U/L (46-116); Anion Gap 9 (7-16); Aspartate Amino Transferase 20 U/L (0-34); BUN/Creatinine Ratio 18 Ratio (12-20); Bilirubin,Total 0.5 mg/dL (0.3-1.2); Blood Urea Nitrogen 14 mg/dL (9-23); Calcium 8.7 mg/dL (8.3-10.6); Calcium (Corrected) 8.9 mg/dL (8.5-10.1); Carbon Dioxide 27.2 mMol/L (20.0-31.0); Chloride 107 mMol/L (98-107); Creatinine (Component) 0.8 mg/dL (0.6-1.3); Estimated Creatinine Clearance 51.4 mL/min (>60); Globulin 2.2 gm/dL (2.3-3.5); Glucose 91 mg/dL (74-106); Magnesium 2.0 mg/dL (1.6-2.6); Osmolality,Calculated 285 (275-295); Phosphorous 3.7 mg/dL (2.4-5.1); Potassium 3.4 mMol/L (3.4-5.1); Sodium 143 mMol/L (136-145); Total Protein 6.0 gm/dL (5.7-8.2); eGFR > 60 See Note
[2025-01-22] MEDS: ENOXAPARIN SOD INJ 40 MG/0.4 ML SYRINGE SC (08:12)
--- NOTE | 2025-01-22 08:45 | ESPR_ITS ---
<Statement entered by Jhon Escobar MD - 01/23/25 14:34> Patient seen and examined at bedside. I discussed and supervised with the audit practice intern physician who took care of this patient. I personally saw and examined the patient. I agree with most of the assessment and plan. Plan of care discussed with attending Dr. Newell. Jhon Escobar MD PGY-2 Documentation for date of: 01/22/25 Subjective Subjective Interval history: 84-year-old female with past medical history of GERD, stomach ulcer, migraine, vertigo (meclizine prn), hypertension, hyperlipidemia, TIA on aspirin, presents with generalized body weakness and 3 episodes of coffee-ground emesis.? Admitted for upper GI bleed workup. Patient reported feeling heavy in the legs and numbness in her entire body starting yesterday morning. Has been feeling more sluggish, tired and weakness for the past 1 to 2 months. Patient reported dark brown vomit 3 times at home, 5 times here. Last vomit was last night 6 to 7 PM. No obvious blood seen in the vomit. Denies melena, hematochezia. Patient takes omeprazole for GERD occasionally when symptomatic, stopped about 2 months ago. Per daughter, patient has palpitations at night that kept her from sleeping, has been seeing Dr. Blackmon, leather dresser for the past few years. Patient was never put on any medications for A-fib. Multiple stress test was done, last stress test was 2 to 6 months ago. History of strokelike symptoms a few months ago with unilateral facial drooping and right limb numbness. Was informed that no stroke was diagnosed, likely due to stress. GI, Dr. Tan, consulted, appreciate recs: Plan for EGD. ?Last EGD in 2018 showed hiatal hernia and esophagitis, mildly erythematous mucosa in the greater curvature of stomach body, biopsy showed negative H. 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, no dysplasia Exam Vital Signs Temp Pulse Resp BP Pulse Ox O2 Del Method 97.9 F 67 17 135/76 H 95 Room Air 01/22/25 08:00 01/22/25 08:00 01/22/25 08:00 01/22/25 08:00 01/22/25 08:00 01/22/25 08:00 Narrative Exam General: AOx3, no acute distress, able to speak full sentences, Croatian-speaking HEENT: NC/AT, mucous membranes moist, bilateral sclera anicteric Cardiovascular: regular rate and rhythm, S1/S2 present, no murmurs appreciated Pulmonary: clear to auscultation bilaterally, no rales/rhonchi/wheezes Abdominal: soft, non-tender, non-distended, no rebound/guarding, normal bowel sounds present Musculoskeletal: normal ROM, no peripheral edema, Strength 5/5 RUE RLE and 4/5 LUE LLE Skin: warm and dry, intact, no rashes, Neuro: CN II-XII intact, no focal deficits Objective Labs 01/23/25 04:47 01/23/25 04:47 Labs: Laboratory Results - last 24 hr 01/21/25 01/21/25 01/22/25 19:00 20:53 04:42 WBC 9.0 9.4 RBC 4.13 3.69 L Hgb 12.4 11.3 L Hct 37.0 33.6 L MCV 90 91 MCH 30.0 30.6 MCHC 33.5 33.6 RDW Std Deviation 42.5 42.6 Plt Count 215 192 Neut % (Auto) 60 59 Lymph % (Auto) 27 31 [place] % (Auto) 10 8 Eos % (Auto) 2 2 Baso % (Auto) 1 0 Neut # (Auto) 5.4 5.5 Lymph # (Auto) 2.4 2.9 [place] # (Auto) 0.9 H 0.7 Eos # (Auto) 0.2 0.2 Baso # (Auto) 0.1 0.0 Immature Gran # (Auto) 0.02 H 0.01 H Absolute Nucleated RBC 0.00 0.00 Immature Gran % 0 0 Nucleated RBC % 0 0 PT 10.4 INR 1.0 APTT 25.2 Sodium 143 143 Potassium 3.2 L 3.4 Chloride 103 107 Carbon Dioxide 28.0 27.2 Anion Gap 12 9 BUN 19 14 Creatinine 0.8 0.8 Estim Creat Clear Calc 47.3 L 51.4 L eGFR > 60 > 60 BUN/Creatinine Ratio 24 H 18 Glucose 80 91 Calculated Osmolality 286 285 Calcium 10.1 8.7 Corrected Calcium 10.1 8.9 Phosphorus 3.7 Magnesium 2.1 2.0 Total Bilirubin 0.5 0.5 AST 22 20 ALT 17 13 Alkaline Phosphatase 70 53 D Troponin I < 0.020 Total Protein 7.1 6.0 Albumin 4.5 3.8 D Globulin 2.6 2.2 L Albumin/Globulin Ratio 1.7 1.7 Lipase 59 H Ur Collection Type Clean Catch Urine Color Lt-Yellow Urine Clarity Clear Urine pH 6.5 Ur Specific [place] 1.012 Urine Protein Negative Urine Glucose (UA) 1+ A Urine Ketones Negative Urine Blood Negative Urine Nitrite Negative Urine Bilirubin Negative Urine Urobilinogen (Auto) Negative Ur Leukocyte Esterase Positive Urine RBC 2 Urine WBC 16 H Ur Squamous Epith Cells 7 H Urine Bacteria Rare Blood Type Cancelled Antibody Screen Cancelled Blood Bank Wristband ID Cancelled Quality Measures Quality Measures VTE prophylaxis Advance care planning discussed with:: patient Assessment & Plan Assessment Current Active Medications: Generic Name Dose Route Start Last Admin Trade Name Freq PRN Reason Stop Dose Admin Acetaminophen 650 mg 01/21/25 22:52 01/22/25 00:42 Acetaminophen 325 Mg Tablet PO 02/20/25 22:51 650 mg Q6H PRN Administration PAIN (1-3) OR FEVER > 100.4 Hydralazine HCl 10 mg 01/21/25 23:49 Hydralazine Inj 20 Mg/Ml Vial IV 02/20/25 23:48 Q4H PRN SBP >180 OR DBP >100 Lactated Ringer's 1,000 mls @ 75 mls/hr 01/21/25 23:00 01/22/25 00:20 Lactated Ringers IV 01/22/25 12:19 75 mls/hr .[id number] ILEANA Administration Ondansetron HCl 4 mg 01/21/25 22:52 Ondansetron Inj 2 Mg/Ml Inj 2 Ml IVP 02/20/25 22:51 Q6H PRN NAUSEA OR VOMITING Protocol Pantoprazole Sodium 40 mg 01/22/25 09:00 01/22/25 08:12 Pantoprazole Inj 40 Mg Vial IVP 02/21/25 08:59 40 mg BID ILEANA Administration Sucralfate 1 gm 01/22/25 14:00 Sucralfate 1 Gm Tablet PO 02/21/25 13:59 TID ILEANA Plan 84-year-old female with a history of GERD, stomach ulcer, vertigo (off meclizine), hypercholesterolemia, and hypertension, TIA on aspirin, not on blood thinners, presents with generalized body weakness that began earlier today, along with three episodes of coffee-ground vomitus prior to arrival. Patient admitted for upper GI bleed workup. #Upper GI bleed workup #History of gastric ulcer 3 episodes of coffee-ground emesis prior to ED along with few episodes while in ED Hemoglobin within normal range No history of liver disease No melena In ED patient received Protonix 80 mg Plan ? Sucralfate 1 g x 1, followed by 1 g 3 times daily once no longer NPO ? Protonix 40 mg IV twice daily ? N.p.o. after midnight ? GI consulted, Dr. Tan to perform EGD today #Hypertension Patient takes Coreg and losartan Plan ? Hydralazine 10 mg IV every 4 hours as needed ? Resume home meds as appropriate #Hyperlipidemia Takes atorvastatin 40 mg daily ?Resume home med once no longer n.p.o. Health Maintenance: Diet: N.p.o. after midnight for EGD GI prophylaxis: Protonix 40 mg IV twice daily DVT prophylaxis: Lovenox Antibiotics: None CODE STATUS: DNR Disposition: MedSur Case discussed with my attending Dr. Newell, and senior resident, Dr. Ngo, DO PGY-1 Attending Provider Attestation/Addendum I have seen and examined the patient. I was physically present for the erazo portions of the services provided including history, physical exam, diagnosis, treatment plans and orders. I agree with assessment and plan of care as documented by residents. Even though this this note was carefully revised there may still be minor errors in supervisor hardboard due to voice recognition software. Kaitlin Newell MD
--- NOTE | 2025-01-22 10:21 | PC.SS ---
Addendum entered by AMANUEL Mercer 01/22/25 14:42: ASW notified Dr. Escobar that patients family would like PT evaluation. Addendum entered by AMANUEL Mercer 01/22/25 14:41: Family notified ASW that they would like PT to evaluate patient as they feel patient has regressed with her mobility. Addendum entered by AMANUEL Mercer 01/22/25 11:29: ASW submitted DME referral via [employer]. Original Note: Patient is a 84 year old female presenting to the hospital for UGIB workup. ASW made face to face contact with patient and patient?s daughter at bedside. ASW introduced self, role, and reason for visit. Patient allowed for daughter to remain in the room. Patient confirmed demographic information and stated that she lives alone but has a home caregiver that comes over and helps her. Patient reported that she does not have DME at home, daughter stated that she has noticed her daughter has regressed and stated that patient does not have DME but stated that she may need wheelchair or walker as she is starting to have trouble ambulating. Patients PCP is Dr. Jono Burnette last appointment was two weeks ago. Patient?s pharmacy of choice is [facility]. Patient sated that one she is medically clear she would like to return home. Patient stated that in case she is unable to make medical decisions on her own she would like her daughter Cat Kate to make them. Patient may need transportation at the time of d/c, SS will follow up. D/c: home PCP: Jono Burnette Decision maker: Cat Kate PH: [phone]
--- NOTE | 2025-01-22 11:25 | PC.SS ---
Walkers The diagnosis creates mobility limitation that significantly impairs ability to participate in the patients activities of daily living either in their entirety, or in a reasonable time frame. Also the patient is able to safely use the walker and the patient?s mobility is sufficiently resolved with the use of the walker and cane has been ruled out. Bedside Commode Patient is physically incapable of utilizing regular toilet facilities because his or her diagnosis confines the patient to a single room. Patient is confined to a single level, and there is no toilet on that level; patient cannot access the toilet facilities in a timely manner due to lack of ambulation.
--- NOTE | 2025-01-22 17:16 | SUR.PHASEI ---
1710-PATIENT RECEIVE INTO [facility] S/P ENDOSCOPY PROCEDURE, REPORT RECEIVED FROM MARY CARMEN CARRILLO, AND DR LOGAN. PATIENT IS DROWSY BUT RESPONDS TO VERBAL, VSS, DENIES ANY PAIN OR DISCOMFORT.
--- NOTE | 2025-01-22 17:51 | SUR.PHASEI ---
1745- REPORT GIVEN TO NURSE, PATIENT TRANSFERRED BACK TO ROOM 368 IN STABLE CONDITION BY SEN CARRILLO,
[2025-01-22] MEDS: BENZOCAINE 20% (Hurricaine) SPRAY 1 DOSE TOP (18:27)
[2025-01-22] MEDS: LOSARTAN POTASSIUM 25 MG TABLET 100 MG PO (18:37)
[2025-01-23] VITALS (7 sets, daily range): BP systolic 127–160; BP diastolic 62–80; PULSE 68–80; RESP 17–96; TEMP 36.1–36.6; O2SAT 94–96
[2025-01-23 05:49] LABS: Basophils # (Auto) 0.1 Thou/mm3 (0.0-0.2); Basophils % (Auto) 1 % (0-2.5); Eosinophils # (Auto) 0.3 Thou/mm3 (0.0-0.5); Eosinophils % (Auto) 4 % (0-10); Hematocrit 32.4 % (36.0-46.0); Hemoglobin 10.8 g/dL (12.0-16.0); Immature Granulocytes Auto 0.01 Thou/mm3 (0.00-0.00); Lymphocytes # (Auto) 2.4 Thou/mm3 (1.0-4.8); Lymphocytes % (Auto) 37 % (10-50); Mean Corpuscular HGB Conc 33.3 g/dl (31.0-37.0); Mean Corpuscular Hemoglobin 30.4 pg (25.0-35.0); Mean Corpuscular Volume 91 fL (80-100); Monocytes # (Auto) 0.6 Thou/mm3 (0.0-0.8); Monocytes % (Auto) 9 % (0-12); Neutrophils # (Auto) 3.3 Thou/mm3 (1.8-7.7); Neutrophils % (Auto) 49 % (37-80); Nucleated Red Blood Cell # 0.00 Thou/mm3 (0.00-0.00); Nucleated Red Blood Cell % 0 /100 WBC (0); Platelet Count 184 Thou/mm3 (140-440); RDW Standard Deviation 43.6 fL (36.4-46.3); Red Blood Count 3.55 Miln/mm3 (4.00-5.20); White Blood Count 6.6 Thou/mm3 (3.6-11.0)
[2025-01-23] MEDS: SUCRALFATE 1 GM TABLET PO (05:51)
[2025-01-23 06:10] LABS: Alanine Aminotransferase 13 U/L (10-49); Albumin, Serum 3.8 gm/dL (3.4-4.8); Albumin/Globulin Ratio 1.8 (1.2-2.2); Alkaline Phosphatase 52 U/L (46-116); Anion Gap 10 (7-16); Aspartate Amino Transferase 22 U/L (0-34); BUN/Creatinine Ratio 16 Ratio (12-20); Bilirubin,Total 0.7 mg/dL (0.3-1.2); Blood Urea Nitrogen 13 mg/dL (9-23); Calcium 8.7 mg/dL (8.3-10.6); Calcium (Corrected) 8.9 mg/dL (8.5-10.1); Carbon Dioxide 29.2 mMol/L (20.0-31.0); Chloride 106 mMol/L (98-107); Creatinine (Component) 0.8 mg/dL (0.6-1.3); Estimated Creatinine Clearance 51.4 mL/min (>60); Globulin 2.1 gm/dL (2.3-3.5); Glucose 82 mg/dL (74-106); Magnesium 1.9 mg/dL (1.6-2.6); Osmolality,Calculated 287 (275-295); Phosphorous 3.3 mg/dL (2.4-5.1); Potassium 3.5 mMol/L (3.4-5.1); Sodium 145 mMol/L (136-145); Total Protein 5.9 gm/dL (5.7-8.2); eGFR > 60 See Note
--- NOTE | 2025-01-23 07:15 | PC.NURSE ---
DR. BAGLEY AT BEDSIDE HEAD TO TOE ASSESSMENT AND POC DISCUSSED WITH PT, BP HIGH LAST NIGHT AND THIS MORNING IS 141/62 HR 71, MD AWARE. NO NEW ORDERS.
[2025-01-23] MEDS: LOSARTAN POTASSIUM 25 MG TABLET 100 MG PO (08:32)
--- NOTE | 2025-01-23 09:05 | PC.SS ---
Follow up note: SS has received call from Hannah from [facility] [place] who is aware pt is still hospitalized and they will deliver commode and walker to bedside. Pt will return home upon dc.
[2025-01-23] MEDS: ASPIRIN EC 81 MG TABEC PO (09:24)
--- NOTE | 2025-01-23 14:53 | ESDS_ITS ---
<Statement entered by Jinny Camacho DO - 01/24/25 08:18> I, Jinny Camacho DO, attest that I was physically present for the erazo portions of the service and evaluated the patient with the resident and I reviewed and discussed the case with the resident and agree with the resident's findings and plans of care as documented above <Statement entered by Sonal Felton MD - 01/23/25 18:55> Patient was seen and examined by me personally. I have reviewed the below documentation by the team resident and agree with its findings. Discharge plan was discussed with the attending, Dr. Jinny Barber MD Internal Medicine, PGY-2 Planned Discharge Date 01/23/25 DS: Providers Provider Date of admission: 01/21/25 23:12 Primary care physician: Jono Brandon Admitting Provider: Dalila Quintana MD Attending Provider on Admission: Jinny Camacho DO Consults: 01/21/25 22:04 Consult to Gastroenterology Stat Comment: Upper GI bleed Consulting Provider: Kristina Tan 01/22/25 14:30 Referral Physical Therapy Routine Comment: Physician Instructions: Attending Provider on DC: Jinny Camacho DO Discharging Provider: Jinny Camacho DO Anticipated date of discharge: 01/23/25 DS: Diagnosis Problem List Completed Was Problem List Reviewed/Reconciled?: Yes Hospital Course Hospital Course Hospital course: 84-year-old female with past medical history of GERD, stomach ulcer, migraine, vertigo (meclizine as needed) hypertension, hyperlipidemia, TIA on aspirin, presented with generalized body weakness and 3 episodes of coffee-ground emesis on 01/21/2025. Patient was admitted for upper GI bleed workup. T 98.7, BP 140/87, HR 84, RR 19, O2 sat 99% room air. CBC showed hemoglobin 12.4, platelets 250. CMP showed potassium 3.2, creatinine 0.8, magnesium 2.1, LFTs within normal range, lipase mildly elevated at 59. Chest x-ray showed prominent right mediastinum, ectatic thoracic aorta, prominent osteopenia. UA showed WBC 16, positive leuk esterase. Past the point of admission, patient's nausea and vomiting improved to the point of resolution of symptoms. Patient had been in generalized body weakness, complaining of numbness throughout her body and feeling heavy in the legs, which also resolved. During her stay patient's vital signs were stable and labs remained unremarkable. GI was consulted who performed an inpatient endoscopy with the findings of linear ulcer at the gastroesophageal junction, gastritis, and normal duodenum patient treated with sucralfate, Protonix 40 mg twice daily. Patient's home meds for prior hx of TIA and hyperlipidemia including aspirin 81 mg and atorvastatin 40 mg were resumed daily while inpatient. At the time of discharge, patient is medically stable and deemed safe to return to her previous state of living. Admission diagnosis: #Linear GE Junction Esophageal Ulcer #Upper GI bleed, hematemesis #Gastritis #History of Gomes's esophagus per pathology report 2018 #Hypertension #TIA #Hyperlipidemia Discharge instructions: You have been started on the following medications: -Pantoprazole 40 mg twice a day for 30 days -Carafate 1 g tablet 3 times daily for 30 days -Continue all your other home medications The following medications have been STOPPED: -Please hold your Coreg for 1 week, follow-up with your primary care physician before resuming Please follow up with your primary doctor in 7-10 days. Please avoid spicy, acidic, or fatty foods. Obtain referral to gastroenterology and follow-up with GI outpatient Return to ED if you develop new or worsening symptoms. This case was discussed with my attending physician, Dr. Camacho, and senior resident, Dr Felton. Even though this this note was carefully revised there may still be minor errors in equipment maintenance technician due to voice recognition software. Jonah Nunez DO PGY I Status at Discharge Cognitive/behavioral status at discharge: stable Overall status at discharge: patient is back to baseline Time Spent with Patient Time attestation: Total time spent providing and/or coordinating discharge services: More than 50% of the patient's total hospital stay Time spent: Greater than 30 minutes Exam Vital Signs Temp Pulse Resp BP Pulse Ox O2 Del Method O2 Flow Rate 97.8 F 75 17 136/80 H 94 L Room Air 2 01/23/25 12:00 01/23/25 12:00 01/23/25 12:00 01/23/25 12:00 01/23/25 12:00 01/23/25 12:00 01/22/25 17:20 Narrative Exam General: AOx3, no acute distress, able to speak full sentences, Hong Konger-speaking HEENT: NC/AT, mucous membranes moist, bilateral sclera anicteric Cardiovascular: regular rate and rhythm, S1/S2 present, no murmurs appreciated Pulmonary: clear to auscultation bilaterally, no rales/rhonchi/wheezes Abdominal: soft, non-tender, non-distended, no rebound/guarding, normal bowel sounds present Musculoskeletal: normal ROM, no peripheral edema Skin: warm and dry, intact, no rashes, Neuro: CN II-XII intact, no focal deficits Discharge Plan Plan Patient Disposition: HOME (Self Care) Patient condition on transfer: Stable Care Plan Goals: You have been started on the following medications: -Pantoprazole 40 mg twice a day for 30 days -Carafate 1 g tablet 3 times daily for 30 days -Continue all your other home medications The following medications have been STOPPED: -Please hold your Coreg for 1 week, follow-up with your primary care physician before resuming Please follow up with your primary doctor in 7-10 days. Please avoid spicy, acidic, or fatty foods. Obtain referral to gastroenterology and follow-up with GI outpatient Return to ED if you develop new or worsening symptoms. Prescriptions/Referrals Prescriptions/Med Rec: New pantoprazole [Protonix] 40 mg tablet,delayed release (DR/EC) 40 mg PO BID 30 Days Qty: 60 0RF sucralfate [Carafate] 1 gram tablet 1 g PO TID 30 Days Qty: 90 0RF Continued losartan-hydrochlorothiazide 100-12.5 mg Tablet 1 tab PO QDAY atorvastatin [Lipitor] 40 mg tablet 40 mg PO QDAY aspirin 81 mg tablet,delayed release (DR/EC) 81 mg PO QDAY Held carvedilol [Coreg] 6.25 mg tablet 6.25 mg PO BID Hold Instructions: Resume on 01/30/25. Follow up with PCP before resuming Rx Instructions: must administer with a meal/food Referrals: Jono Marie [Primary Care Provider] Kristina Tan MD [Physician, Gastroenterology] Patient/Caregiver Discharge Instructions Discharge Activity: activity as tolerated Education Materials: Upper GI Endoscopy, Discharge Instructions- Eating ..., ED Upper GI Bleeding (Stable) Print Language: Hong Konger Stand Alone Forms: Anjelica Award Info., Patient Portal Info Letter Discharge Order Discharge Orders: Discharge (Routine); Ordered 01/23/25 Ordered By: Sonal Felton Quality Discharge Quality Measures VTE prophylaxis
--- NOTE | 2025-01-23 18:21 | PD.IMPROG ---
Documentation for date of: 01/23/25 Subjective Subjective Interval history: Late entry for the note hemoglobin hematocrit 10.8 and 32.4 Slight drop Upper endoscopy showed distal esophageal ulcer/erosion and gastritis Okay to discharge on a PPI Exam Vital Signs Temp Pulse Resp BP Pulse Ox O2 Del Method O2 Flow Rate 97.8 F 75 17 136/80 H 94 L Room Air 2 01/23/25 12:00 01/23/25 12:00 01/23/25 12:00 01/23/25 12:00 01/23/25 12:00 01/23/25 12:00 01/22/25 17:20 Objective Labs 01/23/25 04:47 01/23/25 04:47 Labs: Laboratory Results - last 24 hr 01/23/25 04:47 WBC 6.6 RBC 3.55 L Hgb 10.8 L Hct 32.4 L MCV 91 MCH 30.4 MCHC 33.3 RDW Std Deviation 43.6 Plt Count 184 Neut % (Auto) 49 Lymph % (Auto) 37 [place] % (Auto) 9 Eos % (Auto) 4 Baso % (Auto) 1 Neut # (Auto) 3.3 Lymph # (Auto) 2.4 [place] # (Auto) 0.6 Eos # (Auto) 0.3 Baso # (Auto) 0.1 Immature Gran # (Auto) 0.01 H Absolute Nucleated RBC 0.00 Immature Gran % 0 Nucleated RBC % 0 Sodium 145 Potassium 3.5 Chloride 106 Carbon Dioxide 29.2 Anion Gap 10 BUN 13 Creatinine 0.8 Estim Creat Clear Calc 51.4 L eGFR > 60 BUN/Creatinine Ratio 16 Glucose 82 Calculated Osmolality 287 Calcium 8.7 Corrected Calcium 8.9 Phosphorus 3.3 Magnesium 1.9 Total Bilirubin 0.7 AST 22 ALT 13 Alkaline Phosphatase 52 Total Protein 5.9 Albumin 3.8 Globulin 2.1 L Albumin/Globulin Ratio 1.8 Impressions Impression: Coffee-ground emesis secondary to distal esophageal ulcer Gastritis Okay to discharge patient home on a PPI Assessment & Plan A&P Narrative # Coffee-ground emesis Plan Consent obtained for fiberoptic esophagogastroduodenoscopy with possible biopsy possible therapeutic intervention under intravenous moderate sedation IV Protonix Serial CBC Will follow the patient Other medical problems include Essential hypertension TIA Hyperlipidemia Vertigo history of Thank you very much for the opportunity to participate in the care of this patient Time Spent With Patient Time: Total time spent is greater than 50% in coordination of care (as documented) at patient's floor/unit and/or counseling patient:
== END 2025-01-23 14:03 | disposition home or self-care (01) | DRG 381 ==
LOC: SERX 22:14 → SERHOLD 23:13 → S3SX 01-22 00:12
PROVIDERS: Nurse Practitioner Family; Specialist; Admitting Provider Student in an Organized Health Care Education/Training Program; Emergency Provider Emergency Medicine; PCP Physician Assistant; Visit Provider Internal Medicine
PROC: 0DJ08ZZ Inspection of Upper Intestinal Tract, Via Natural or Artificial Opening Endoscopic (ICD-10-PCS; CPT 43239; principal; 2025-01-22 16:30)
DX: K22.11 Ulcer of esophagus with bleeding (principal); G45.9 Transient cerebral ischemic attack, unspecified; K25.4 Chronic or unspecified gastric ulcer with hemorrhage; K21.9 Gastro-esophageal reflux disease without esophagitis; E78.00 Pure hypercholesterolemia, unspecified; I10 Essential (primary) hypertension; M85.80 Other specified disorders of bone density and structure, unspecified site; I48.91 Unspecified atrial fibrillation; E87.6 Hypokalemia; Z66 Do not resuscitate; Z86.73 Personal history of transient ischemic attack (TIA), and cerebral infarction without residual deficits; Z87.11 Personal history of peptic ulcer disease; Z79.82 Long term (current) use of aspirin; Z79.899 Other long term (current) drug therapy
CPT/HCPCS: 36415; 71045; 74177; 80053; 81001; 83690; 83735; 84100; 84484; 85025; 85610; 85730; 86850; 86900; 86901; 93005; 96365; 96375; 96376; 97162; 99284; A4649; J1650; J2405; J2470; J3480; J7120; Q9967; A9270

== ENCOUNTER → 2025-02-07 | Outpatient (CLI) | payer MEDICARE, MEDICAID, SELFPAY ==
[2025-02-07 11:43] LABS: Basophils # (Auto) 0.0 Thou/mm3 (0.0-0.2); Basophils % (Auto) 1 % (0-2.5); Eosinophils # (Auto) 0.2 Thou/mm3 (0.0-0.5); Eosinophils % (Auto) 4 % (0-10); Hematocrit 35.1 % (36.0-46.0); Hemoglobin 11.7 g/dL (12.0-16.0); Immature Granulocytes Auto 0.02 Thou/mm3 (0.00-0.00); Lymphocytes # (Auto) 2.1 Thou/mm3 (1.0-4.8); Lymphocytes % (Auto) 34 % (10-50); Mean Corpuscular HGB Conc 33.3 g/dl (31.0-37.0); Mean Corpuscular Hemoglobin 31.0 pg (25.0-35.0); Mean Corpuscular Volume 93 fL (80-100); Monocytes # (Auto) 0.6 Thou/mm3 (0.0-0.8); Monocytes % (Auto) 10 % (0-12); Neutrophils # (Auto) 3.3 Thou/mm3 (1.8-7.7); Neutrophils % (Auto) 52 % (37-80); Nucleated Red Blood Cell # 0.00 Thou/mm3 (0.00-0.00); Nucleated Red Blood Cell % 0 /100 WBC (0); Platelet Count 200 Thou/mm3 (140-440); RDW Standard Deviation 44.7 fL (36.4-46.3); Red Blood Count 3.78 Miln/mm3 (4.00-5.20); White Blood Count 6.3 Thou/mm3 (3.6-11.0)
[2025-02-07 12:24] LABS: Alanine Aminotransferase 12 U/L (10-49); Albumin, Serum 4.2 gm/dL (3.4-4.8); Alkaline Phosphatase 66 U/L (46-116); Anion Gap 8 (7-16); Aspartate Amino Transferase 22 U/L (0-34); BUN/Creatinine Ratio 17 Ratio (12-20); Bilirubin,Direct 0.2 mg/dL (0.0-0.3); Bilirubin,Total 0.8 mg/dL (0.3-1.2); Blood Urea Nitrogen 15 mg/dL (9-23); Calcium 9.2 mg/dL (8.3-10.6); Carbon Dioxide 31.3 mMol/L (20.0-31.0); Cardiac Risk Estimate 2.6 RATIO (3.7-5.6); Chloride 105 mMol/L (98-107); Cholesterol 158 mg/dL (132-200); Creatinine (Component) 0.9 mg/dL (0.6-1.3); Free T4 (Free Thyroxine) 1.44 ng/dL (0.89-1.76); Glucose 92 mg/dL (74-106); HDL Cholesterol 60 mg/dL (40-60); LDL Cholesterol,Calculated 78 mg/dL (0-130); Osmolality,Calculated 287 (275-295); Potassium 3.7 mMol/L (3.4-5.1); Sodium 144 mMol/L (136-145); Thyroid Stimulating Hormone 0.50 uIU/mL (0.55-4.78); Total Protein 7.1 gm/dL (5.7-8.2); Triglycerides 99 mg/dL (30-150); eGFR > 60 See Note
== END | disposition home or self-care (01) ==
LOC: COPL 10:08
PROVIDERS: PCP Physician Assistant; Referring Provider Internal Medicine Cardiovascular Disease; Visit Provider Internal Medicine Cardiovascular Disease
DX: I10 Essential (primary) hypertension (principal); E78.5 Hyperlipidemia, unspecified
CPT/HCPCS: 36415; 80048; 80061; 80076; 84439; 84443; 85025

== ENCOUNTER → 2025-02-20 | Outpatient (CLI) | payer MEDICARE, MEDICAID, SELFPAY ==
[2025-02-20 12:31] LABS: Alanine Aminotransferase 11 U/L (10-49); Albumin, Serum 4.0 gm/dL (3.4-4.8); Albumin/Globulin Ratio 1.3 (1.2-2.2); Alkaline Phosphatase 70 U/L (46-116); Anion Gap 10 (7-16); Aspartate Amino Transferase 20 U/L (0-34); BUN/Creatinine Ratio 21 Ratio (12-20); Bilirubin,Total 0.6 mg/dL (0.3-1.2); Blood Urea Nitrogen 17 mg/dL (9-23); Calcium 9.1 mg/dL (8.3-10.6); Calcium (Corrected) 9.1 mg/dL (8.5-10.1); Carbon Dioxide 24.8 mMol/L (20.0-31.0); Chloride 107 mMol/L (98-107); Creatinine (Component) 0.8 mg/dL (0.6-1.3); Globulin 3.1 gm/dL (2.3-3.5); Glucose 92 mg/dL (74-106); Magnesium 2.1 mg/dL (1.6-2.6); Osmolality,Calculated 284 (275-295); Potassium 3.8 mMol/L (3.4-5.1); Sodium 142 mMol/L (136-145); Total Protein 7.1 gm/dL (5.7-8.2); eGFR > 60 See Note
== END | disposition home or self-care (01) ==
LOC: COPL 11:23
PROVIDERS: PCP Family Medicine; Referring Provider Internal Medicine; Visit Provider Internal Medicine
DX: R29.898 Other symptoms and signs involving the musculoskeletal system (principal); E87.6 Hypokalemia
CPT/HCPCS: 36415; 80053; 83735

== ENCOUNTER → 2025-02-27 | Outpatient (CLI) | payer MEDICARE, MEDICAID, SELFPAY ==
--- NOTE | 2025-02-27 14:26 | XR_ITS ---
Examination: Venous duplex lower extremity sonogram, bilateral. Date and time of exam: February 27, 2025, 1509 hours INDICATIONS: Bilateral leg numbness 6 months Technique: Multiple sonographic images of the deep venous system have been obtained. B-mode/2-D grayscale imaging of vascular structures and Doppler spectral analysis (waveforms) and color performed Both legs are examined. Findings: Deep venous systems do not demonstrate abnormal echogenicity. All visualized deep veins exhibit compressibility. All visualized deep veins exhibit augmentation. Impression: Negative for deep vein thrombosis
--- NOTE | 2025-02-27 14:26 | XR_ITS ---
Examination: Arterial duplex lower extremity study. Date and time of exam: February 27, 2025, 1456 hours INDICATIONS: Bilateral leg numbness and weakness 6 months. Findings: Duplex sonographic imaging of the lower extremity arteries using B-mode/Delaney scale imaging and Doppler spectral analysis and color flow. Ankle brachial indices have been recorded. Right common femoral artery demonstrates triphasic flow. Right superficial femoral artery demonstrates biphasic flow. Right popliteal artery demonstrates triphasic flow. Right posterior tibial artery demonstrated biphasic flow. Right ankle/brachial index is 1.1. Left common femoral artery demonstrates biphasic flow. Left superficial femoral artery demonstrates biphasic flow. Left popliteal artery demonstrates biphasic flow. Left posterior tibial artery demonstrated biphasic flow. Left ankle/brachial index is 1.0. Impression: No significant obstructive arterial disease
--- NOTE | 2025-02-27 14:34 | XR_ITS ---
Examination: CT brain head without contrast. 2-D sagittal coronal reconstructions Date and time of exam: February 27, 2025, 1445 hours INDICATIONS: Generalized weakness several months COMPARISON: December 29, 2023 CTDI: vol (mGy): 46.8 DLP: (mGycm): 991 Technique: Multiple CT axial sections of the brain have been obtained, 5 mm slice thickness. Contrast has not been administered. 2-D sagittal, coronal reconstructions have been obtained Low dose protocols were performed. One or more of the following dose reduction techniques were used; automated exposure control, adjustment of the mA and/or KV according to patient size, use of iterative reconstruction technique. Findings: No significant ventricular enlargement. 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 No mass effect or midline shift Basal cisterns are not remarkable. Fourth ventricle is midline. Cranial vault intact. Impression: Negative for acute hemorrhage, mass effect or midline shift
== END | disposition home or self-care (01) ==
LOC: CDIM 11:39 → SCAT 14:17
PROVIDERS: PCP Physician Assistant; Referring Provider Internal Medicine; Visit Provider Internal Medicine
DX: R53.1 Weakness (principal); R20.0 Anesthesia of skin; R20.9 Unspecified disturbances of skin sensation
CPT/HCPCS: 70450; 93925; 93970